=== PATIENT | female | born 1990 | race Asian ===

== ENCOUNTER 2018-03-21 03:49 | Emergency (ER) | payer MEDICAID ==
[~2018-03-21] VITALS: Ht 172.7 cm; Wt 84.5 kg
[2018-03-21 03:52] VITALS: BP 136/96
== END 2018-03-21 04:03 | disposition home or self-care (01) ==
LOC: ED 03:49
DX: S40.862A Insect bite (nonvenomous) of left upper arm, initial encounter (principal); F17.210 Nicotine dependence, cigarettes, uncomplicated; W57.XXXA Bitten or stung by nonvenomous insect and other nonvenomous arthropods, initial encounter; Y93.89 Activity, other specified; Y92.89 Other specified places as the place of occurrence of the external cause; Y99.8 Other external cause status